=== PATIENT | female | born 2005 | race Two or more races ===

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

== ENCOUNTER 2025-03-14 11:36 | Emergency (ER) | payer OTHER ==
[~2025-03-14] VITALS: Ht 157.5 cm; Wt 65.8 kg
== END 2025-03-14 14:54 | disposition home or self-care (01) ==
LOC: ER 11:37
DX: O20.8 Other hemorrhage in early pregnancy (principal); Z3A.01 Less than 8 weeks gestation of pregnancy; Z91.013 Allergy to seafood

== ENCOUNTER 2025-03-18 00:11 | Emergency (ER) | payer OTHER ==
[~2025-03-18] VITALS: Ht 157.5 cm; Wt 65.8 kg
[2025-03-18] MEDS ORDERED: 0.9 % SODIUM CHLORIDE 1,000 ML IV STA (00:36)
[2025-03-18 02:25] LABS: BASO % 1.0 % (0.1-1.2); EOS # 0.13 (0.04-0.54); EOS % 2.6 % (0.7-7.0); LYMPH # 2.05 (1.18-3.74); LYMPH % 41.2 % (19.3-53.1); MEAN PLATELET VOLUME 10.50 fl (9.4-12.4); MONO # 0.48 (0.24-0.82); MONO % 9.6 % (4.7-12.5); NEUT # 2.27 (1.56-6.13); NEUT % 45.6 % (34.0-71.1); RED CELL DISTRIBUTION WIDTH 13.0 % (11.6-14.4)
[2025-03-18 02:27] LABS: INR 1.05
[2025-03-18 02:44] LABS: ALT/SGPT 24.0 U/L (12-78); AST/SGOT 29.0 U/L (15-37); BILIRUBIN TOTAL 0.27 mg/dL (0.3-1.2); BUN CREA RATIO 13.0 (7.0-25.0); CREATININE SERUM 0.7 mg/dL (0.55-1.02); GFR 107.8; GLOBULINA 4.2 G/DL (2.4-3.5); GLUCOSE FASTING 78.0 mg/dL (65-100); OSMOLALITY SERUM 281.0 MOSM/KG (275-295)
== END 2025-03-18 05:42 | disposition home or self-care (01) ==
LOC: ER 00:12
PROVIDERS: Physician Assistant Medical
DX: O03.9 Complete or unspecified spontaneous abortion without complication (principal); Z91.013 Allergy to seafood